=== PATIENT | female | born 2000 | race American Indian/Alaskan Native ===

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

== ENCOUNTER 2019-11-27 02:58 | Inpatient (IN) | payer MEDICAID ==
[2019-11-27] MEDS ORDERED: Oxytocin/Normal Saline 30 UNIT/500 ML BAG IV SCH (04:30)
[2019-11-27] MEDS ORDERED: Penicillin G Potassium 5 MILLUNITS in Sodium Chloride 0.9% 100 ML IV ONE (04:31)
[2019-11-27] MEDS: Lactated Ringers 1,000 ML IV SCH ×3 (06:16→11:24)
[2019-11-27] MEDS: Penicillin G Potassium 3 MILLUNITS in Sodium Chloride 0.9% 100 ML IV SCH ×2 (08:38→14:42)
--- NOTE | 2019-11-27 08:50 | OBOUT ---
DATE: 11/27/2019 DATE AND TIME OF NST: 11/27/2019, 3:40 to 4 a.m. REASON FOR NST: 1. Intrauterine at 40 and 1/7 weeks, confirmed with 20 and 4/7 week ultrasound. 2. Contractions. 3. Insufficient care/high-risk . 4. GBS unknown status. 5. History of fast labors and deliveries. 6. Difficulty getting to the hospital. 7. G2, P1-0-0-1. NST INTERPRETATION: During this time period, heart tone at baseline is approximately 125 and at least two 15 x 15 beats per minute accelerations making this strip reactive as well as reassuring. Tocometer reveals potential 7 to 8 contractions, minimally felt by patient. ASSESSMENT: 1. Nonstress test, reactive and reassuring. 2. Tocometer with contractions. PLAN: Blood pressure done, 135/76, heart rate 85, temperature 98. The patient was to present shortly after midnight, showed up around 3 o'clock in the morning. Due to her contractions being too often, Pitocin was unable to be started. Penicillin was started due to GBS unknown status, high-risk . Then, we will continue to follow clinically and closely. Consider artificial rupture of membranes if she continues to contract, and we will follow closely. Please see H and P for further details as well. This was done through [facility]. For this, records were called for, reviewed and supplemented by patient's history and review of systems was noted. [facility] /[id number]
[2019-11-27] MEDS ORDERED: NF PO SCH (09:00)
--- NOTE | 2019-11-27 10:06 | PN ---
DATE: 11/27/2019 SUBJECTIVE: The patient has been resting. Occasionally feels her contractions but she describes them as very mild. OBJECTIVE: heart tones currently in the 130s. Vaginal exam reveals her to be 3+ cm, 90% effaced, 0 to +1 station, vertex suspected, and bag of water felt. ASSESSMENT AND PLAN: Intrauterine at 40 and 1/7 weeks, confirmed with 20 and 4/7 weeks ultrasound, now with contractions and cervical foreign exchange clerk a 4 to 5-hour period with history of insufficient care, high risk , unknown GBS status, going to get her 2nd dose of penicillin currently with history of fast labors and deliveries and difficulty getting to the hospital, and G2, P1-0-0-1. We will proceed with getting that 2nd dose of penicillin in and consider artificial rupture of membranes after that, and the patient understands and agrees with the above treatment plan. [facility] /[id number]
[2019-11-27] MEDS ORDERED: EPINEPHrine 1 MG/1 ML Amp ONE ×2 (11:03→11:05)
[2019-11-27] MEDS ORDERED: fentaNYL 100 MCG/2 ML SDV ONE (11:03)
[2019-11-27] MEDS ORDERED: fentaNYL 100 MCG/2 ML SDV ITHECAL ONE (11:05)
--- NOTE | 2019-11-27 11:19 | PN ---
DATE: 11/27/2019 SUBJECTIVE: The patient notes no concerns. She is feeling contractions. OBJECTIVE: Vital Signs: Blood pressure 146/87. Prior to this systolic was 147. ASSESSMENT AND PLAN: Gestational hypertension versus transient hypertension versus preeclampsia. We will do PIH panel. Her white cell count was 7.1, hemoglobin 9.9, and platelets 289 earlier today. We will proceed with PIH panel and follow clinically and closely. No severe features suspected at this point in time as well. [facility] /[id number]
--- NOTE | 2019-11-27 11:38 | PCM.PRNOTE ---
- Free Text/Narrative Note: Requested to provide analgesia to full term patient in severe pain. Upon entering the room, patient is sitting on edge of bed complaining of severe abdominal/pelvic pain and discomfort. Procedure was discussed with patient including adverse outcomes and expectations. Pt consented to analgesia, SAB/IT. Pt placed into a proper sitting position. Landmarks for SAB/IT were identified and marked. Hands were washed and appropriate PPE was applied. Back was prepped with betadine x3. A sterile, transparent, fenestrated drape was applied. Excess betadine was removed. Using 3 mL of a 1% lidocaine solution, a skin wheel was placed at the L2/L3 interspace. A 24 ga (4 inch) Pencan spinal needle was inserted until positive for CSF. Negative for heme or paresthesias. Injected fentanyl 30 mcg, sufentanil 25 mcg, and 7.5 mg of a 0.75% bupivacaine solution with an epi wash. Pt was placed left lateral tilt position for approximately 20 minutes. There were zero complications or adverse outcomes. Will continue to monitor. Procedure Date & Time: 11/27/19 [id number]
--- NOTE | 2019-11-27 12:17 | PN ---
DATE: 11/27/2019 SUBJECTIVE: The patient's contractions are getting stronger. She is noticing them now. OBJECTIVE: heart tones in the 140s range. Tocometer reveals occasional contractions. Vaginal exam reveals to be 3+ cm, 85% to 90% effaced, 0 to -1 station, vertex suspected. Artificial rupture of membranes done after discussion with the patient with bulging bag of water noted, copious amounts of clear fluid returned. ASSESSMENT AND PLAN: Intrauterine 40 and 1/7 weeks with contractions and cervical change in labor, now status post artificial rupture of membranes with unknown GBS status, now status post 2 doses of penicillin with history of insufficient care, high risk during this , and history of fast labors and delivery with difficulty getting to the hospital. PLAN: We will continue to follow clinically and closely at this point in time. Plans were discussed with the patient. Pain management has been discussed with her earlier. [facility] /[id number]
[2019-11-27] MEDS ORDERED: Tranexamic Acid 1,000 MG in Sodium Chloride 0.9% 100 ML IV PRN (12:43)
[2019-11-27] MEDS ORDERED: Simethicone 80 MG Tab.Chew PO PRN (12:43)
[2019-11-27] MEDS ORDERED: Sodium Chloride 0.9% 10 ML Syringe FLUSH PRN (12:43)
[2019-11-27] MEDS ORDERED: Misoprostol 400 MCG (4 X 100 MCG TAB) RECTAL PRN (12:43)
[2019-11-27] MEDS ORDERED: Carboprost Tromethamine 250 MCG/1 ML Amp IM PRN (12:43)
[2019-11-27] MEDS ORDERED: Oxytocin 10 Units/1 ML SDV IM PRN (12:43)
[2019-11-27] MEDS ORDERED: Benzocaine/Menthol 20%-0.5% Spray 56 GM Canister TOP PRN (12:43)
[2019-11-27] MEDS ORDERED: Ondansetron 4 MG/2 ML SDV IVPUSH ONE (12:57)
[2019-11-27] MEDS: Ibuprofen 800 MG Tab PO PRN (17:05)
[2019-11-27] MEDS: Docusate Sodium 100 MG Cap PO PRN (17:05)
--- NOTE | 2019-11-27 18:43 | DEL ---
DATE: 11/27/2019 PREOPERATIVE DIAGNOSES: 1. Intrauterine at 40 and 1/7 weeks, confirmed with 20 and 4/7 weeks ultrasound. 2. Contractions with cervical change upon admission - labor. 3. Gestational hypertension, being worked up for preeclampsia. 4. Insufficient care/high-risk . 5. Unknown GBS status. She received at least 2 doses of penicillin. 6. History of fast labor and delivery. 7. Difficulty getting to the hospital. 8. G2, P1-0-0-1. 9. Anemia of with a hemoglobin of 9.9 upon admission. POSTOPERATIVE DIAGNOSES: 1. Intrauterine at 40 and 1/7 weeks, confirmed with 20 and 4/7 weeks ultrasound - delivered. 2. Contractions with cervical change upon admission - labor. 3. Gestational hypertension, being worked up for preeclampsia. 4. Insufficient care/high-risk . 5. Unknown GBS status. She received at least 2 doses of penicillin. 6. History of fast labor and delivery. 7. Difficulty getting to the hospital. 8. G2, P1-0-0-1. 9. Bilateral clear urethra abrasion, nonbleeding, non repaired after discussion with the patient. 10.Small perineal laceration, less than 1 cm, nonbleeding, non repaired after discussion with the patient. 11.Anemia of with a hemoglobin of 9.9 upon admission. PROCEDURES PERFORMED: Nonstress test followed by artificial rupture of membranes, spontaneous vaginal delivery. CUSTOMER ENERGY SPECIALIST: Emmanuel Hauser MS-4. ANESTHESIA/: The patient did receive an intrathecal in the first stage of labor. ESTIMATED BLOOD LOSS: 350 mL. FINDINGS: Male, score and weight pending. SUMMARY OF EVENTS: The patient is a 19-year-old, G2, P1-0-0-1, intrauterine at 40 and 1/7 weeks, confirmed with 20 and 4/7 weeks ultrasound, admitted on crnp of 11/27/2019 for induction of labor. Actually had contractions, was unable to start Pitocin. She developed cervical chart changer a 5-hour period and then started having elevated blood pressures. She did have artificial rupture of membranes and PIH panel other than the urine as her bag of water was broken. These did not reveal any signs or symptoms of severe preeclampsia. She also had anemia of , hemoglobin 9.9 upon admission. Please see other progress notes for further details. Pending is a urine protein- creatinine ratio at the time of dictation. Subsequently, the patient continued in labor, received an intrathecal in the first stage of labor around 7 cm, then was found to be complete and early decelerations were noted. I was called to the room, donned sterile gown and gloves, as well as Emmanuel Hauser, and the patient started pushing with contractions. vertex was then delivered in a JOSE presentation, followed by anterior posterior shoulder as well as rest of the infant without difficulty. Mouth and nares were suctioned. Cord was doubly clamped and cut. Infant was resuscitated on mother's abdomen. Approximately 10 mL of cord blood was obtained for labs. Placenta was then delivered with gentle cord traction with fundal massage within 5 to 10 minutes. Perineum, vagina, and perirectal areas were examined and noted to have bilateral periurethral abrasions, nonbleeding, non repaired after discussion with the patient, as well as a small perineal laceration, less than 1 cm, nonbleeding, non repaired after discussion with the patient. Mother and infant are currently stable at the time of dictation. [facility] /[id number]
[2019-11-27] MEDS: Acetaminophen 325 MG Tab PO PRN (20:29)
[2019-11-27] MEDS ORDERED: Zolpidem 5 MG Tab PO PRN (21:00)
[2019-11-28] MEDS ORDERED: Prenatal Multivitamin with Calcium/Folic Acid/Iron Tab PO SCH (09:00)
[2019-11-28] MEDS: Ferrous Sulfate 325 MG Tab PO SCH (09:05)
[2019-11-28] MEDS: Ibuprofen 800 MG Tab PO PRN ×2 (09:05→22:37)
[2019-11-28] MEDS: Docusate Sodium 100 MG Cap PO PRN ×2 (09:05→22:36)
--- NOTE | 2019-11-28 09:44 | PN ---
DATE: 11/28/2019 day #1, status post spontaneous vaginal delivery. SUBJECTIVE: The patient is tolerating p.o., was ambulating, urinating, passing flatus. Pain, she had some cramping in her belly. OBJECTIVE: Vital Signs: Temperature 98.2, heart rate 67, blood pressure 117/74, respiratory rate 16. Lungs: Clear to auscultation bilaterally. Heart: S1, S2. Regular rate and rhythm. Abdomen: Firm uterus at the umbilicus. Extremities: No peripheral edema. No calf pain. LABORATORY DATA: White cell count 8.3, hemoglobin 8.3 from predelivery hemoglobin 9.9, and platelets of 221. Yesterday's cath UA did reveal protein creatinine ratio of 4143.2, which would coincide with 4 g of protein. Therefore, she qualified for diagnosis of preeclampsia. ASSESSMENT AND PLAN: 1. day #1, status post spontaneous vaginal delivery. 2. Preeclampsia, resolving with blood pressures normalizing after delivery and we will continue to follow clinically and closely. She denies any headaches, visual changes, or upper abdominal pain today. Watch for any severe signs or symptoms as well. Did discuss with her preeclampsia and potential need for aspirin in the future with . The patient understands, agrees with above treatment plan. [facility] /[id number]
[2019-11-28] MEDS: Acetaminophen 325 MG Tab PO PRN ×2 (13:26→22:39)
--- NOTE | 2019-11-29 08:38 | DISCH ---
ADMITTING DIAGNOSES: 1. Intrauterine at 40 and 1/7 weeks, confirmed with 20 and 4/7 weeks ultrasound. 2. Contraction with cervical change - labor. 3. Insufficient care/high-risk . 4. Unknown GBS status, started on antibiotics. 5. Anemia of . Hemoglobin 9.9 upon admission. 6. History of fast labors and deliveries. 7. Difficulty getting to the hospital in terms of transportation. 8. G2, P1-0-0-1. DISCHARGE DIAGNOSES: 1. Intrauterine at 40 and 1/7 weeks, confirmed with 20 and 4/7 weeks ultrasound - delivered. 2. Contraction with cervical change - labor. 3. Insufficient care/high-risk . 4. Unknown GBS status, started on antibiotics. 5. Anemia of . Hemoglobin 9.9 upon admission. 6. History of fast labors and deliveries. 7. Difficulty getting to the hospital in terms of transportation. 8. G2, P1-0-0-1. 9. Preeclampsia without severe features. 10.Bilateral periurethral abrasions and small perineal laceration, less than 1 cm, nonbleeding, non repaired after discussion with the patient. PROCEDURES PERFORMED: NST, artificial rupture of membranes, spontaneous vaginal delivery per Dr. Hernandez on 11/27/2019. HISTORY OF PRESENT ILLNESS: Please see H and P. SUMMARY OF HOSPITAL COURSE: The patient was admitted on the above date with above diagnoses, and underwent the above procedures. She was initially set up for an induction, but she ended up proceeding into labor with contractions, cervical change. Underwent artificial rupture of membranes and then followed closely thereafter. She went on to deliver a male with score of 10 and 10, weighing 8 pounds 2 ounces (3680 g). Please see delivery note for further details. day #1, please see progress notes. Hemoglobin dropped down to 8.3, iron was started. day #2, date of discharge, the patient is tolerating p.o., is ambulating, urinating, passing flatus, requesting discharge. During her hospital stay, nearing the second stage of labor, she did have some elevated blood pressures. A urine protein-creatinine ratio was done as well as [facility] labs. No severe features were noted. However, her urine did reveal over suspected 4 g of protein with a 4143.3 protein-creatinine ratio and was diagnosed with preeclampsia at that time. PHYSICAL EXAMINATION: LAST SET OF VITALS: Temperature 99.2, heart rate 80, blood pressure 117/62, respiratory rate 18. Lungs: Clear to auscultation bilaterally. Heart: S1, S2. Regular rate and rhythm. Abdomen: Firm uterus. -1 below umbilicus. No peripheral edema. No calf pain. CONDITION ON DISCHARGE COMPARED TO CONDITION ON ADMISSION: Improved. DISCHARGE INSTRUCTIONS: 1. Diet as tolerated. 2. Activity: No lifting more than 20 pounds. No sit-ups or straining. Pelvic rest for the next 6 weeks with immediate return to fertility discussed with the patient. Reasons to return or go to the emergency room were discussed with the patient in detail including, but not limited to temperature greater than 100.4, foul- smelling discharge, red hot tender breasts, or increased vaginal bleeding. DISCHARGE MEDICATIONS: Tnad-isy-cllwsol ibuprofen for pain, iron sulfate 325 b.i.d. x6 weeks, the patient has this at home, and vitamins x6 weeks. FOLLOWUP: 6-weeks and she wishes to follow up with Lissa Ortega or myself and we will make a decision in the near future in regard to this. Did discuss with her the importance of followup and ramifications of not doing so, as well as reasons to go to the emergency room in regard to her infant as well. [facility] /[id number]
[2019-11-29 11:20] VITALS: BP 127/74; PULSE 92
[2019-11-29] MEDS: Ferrous Sulfate 325 MG Tab PO SCH (11:48)
== END 2019-11-29 13:00 | disposition home or self-care (01) | DRG 807 ==
LOC: DL.OB 02:58 → OBSVTOIN 12:34
PROVIDERS: ADMIT Family Medicine; ATTEND Family Medicine
PROC: 10E0XZZ Delivery of Products of Conception, External Approach (ICD-10-PCS; principal; 2019-11-27)
PROC: 10907ZC Drainage of Amniotic Fluid, Therapeutic from Products of Conception, Via Natural or Artificial Opening (ICD-10-PCS; 2019-11-27)
PROC: 3E0R3BZ Introduction of Anesthetic Agent into Spinal Canal, Percutaneous Approach (ICD-10-PCS; 2019-11-27)
PROC: 00HU33Z Insertion of Infusion Device into Spinal Canal, Percutaneous Approach (ICD-10-PCS; 2019-11-27)
DX: O14.04 Mild to moderate pre-eclampsia, complicating childbirth (principal); Z37.0 Single live birth; Z3A.40 40 weeks gestation of pregnancy; O99.02 Anemia complicating childbirth; Z20.828 Contact with and (suspected) exposure to other viral communicable diseases; D64.9 Anemia, unspecified; O76 Abnormality in fetal heart rate and rhythm complicating labor and delivery; O70.0 First degree perineal laceration during delivery
CPT/HCPCS: 01967; 36415; 59409; 81003; 82565; 82570; 83615; 84156; 84450; 84460; 84520; 84550; 85025; 85027; A9270-GY; J0171; J2405; J2540; J2590; J3010; J7120; U0002

== ENCOUNTER 2021-12-02 | Emergency (ER) | payer MEDICAID ==
[2021-12-25 12:29] LABS: CHLORIDE,CL 106 mmol/L (98-107); SODIUM,NA 143 mmol/L (136-145)
[2021-12-25 12:30] LABS: ANION GAP 17.7 mEq/L (7-13); ESTIMATED GFR 110 mL/min (>=60)
== END 2021-12-02 01:22 ==
LOC: DL.ED
DX: S00.31XA Abrasion of nose, initial encounter (principal); S00.81XA Abrasion of other part of head, initial encounter; S00.212A Abrasion of left eyelid and periocular area, initial encounter; F10.10 Alcohol abuse, uncomplicated; Y04.0XXA Assault by unarmed brawl or fight, initial encounter
CPT/HCPCS: 36415; 80053; 80307; 84703; 85025; 99283; 99284

== ENCOUNTER 2022-05-25 11:15 | Emergency (ER) | payer MEDICAID ==
[2022-05-25 11:24] VITALS: BP 129/76; PULSE 88
== END 2022-05-25 11:38 | disposition home or self-care (01) ==
LOC: DL.ED 11:15
DX: H66.003 Acute suppurative otitis media without spontaneous rupture of ear drum, bilateral (principal); J00 Acute nasopharyngitis [common cold]
CPT/HCPCS: 99282; 99283

== ENCOUNTER 2022-06-20 21:45 | Emergency (ER) | payer OTHER, MEDICAID ==
[2022-06-20 21:40] LABS: BASOPHILS PERCENT AUTO 0.3 % (0.0-1.0); EOSINOPHILS PERCENT AUTO 0.8 % (1.0-3.0); HEMATOCRIT 42.7 % (37.0-47.0); LYMPHOCYTES PERCENT AUTO 21.6 % (20.5-50.1); MEAN CORPUSCULAR HEMOGLOBIN 24.3 pg (27.0-34.0); MEAN CORPUSCULAR HGB CONC 32.8 g/dL (33.0-35.0); MEAN CORPUSCULAR VOLUME 74.1 fL (80-100); MONOCYTES PERCENT AUTO 9.8 % (2-8); NEUTROPHILS PERCENT AUTO 67.5 % (42.2-75.2); PLATELET COUNT,PLT 472 10^3/uL (150-450); RED BLOOD CELL COUNT 5.76 10^6/uL (4.2-5.4); WHITE BLOOD CELL COUNT,WBC 10.8 10^3/uL (5.0-10.0)
[~2022-06-20 21:45] MED LIST: Ondansetron 4 MG/2 ML SDV IVPUSH ONE; Sodium Chloride 0.9% 1,000 ML IV ONE
[2022-06-20 21:46] LABS: A/G RATIO 0.9; ALANINE AMINOTRANSFERASE,ALT 30 U/L (14-59); ALBUMIN 4.2 g/dL (3.4-5.0); ALKALINE PHOSPHATASE 117 U/L (46-116); ANION GAP 18.3 mEq/L (7-13); ASPARTATE AMNIOTRANSFERASE,AST 19 U/L (15-37); BILIRUBIN TOTAL 0.4 mg/dL (0.2-1.0); BLOOD UREA NITROGEN,BUN 14 mg/dL (7-18); BUN/CREATININE RATIO 15.1 (No establ ref range); CALCIUM 8.9 mg/dL (8.5-10.1); CARBON DIOXIDE,CO2 21 mmol/L (21-32); CHLORIDE,CL 105 mmol/L (98-107); CREATININE 0.93 mg/dL (0.55-1.02); ETHANOL BLOOD MEDICAL 235 mg/dL (0); GLUCOSE RANDOM 115 mg/dL (70-99); MAGNESIUM 2.4 mg/dL (1.8-2.4); POTASSIUM,K 3.3 mmol/L (3.5-5.1); PROTEIN TOTAL,TP 8.8 g/dL (6.4-8.2); SODIUM,NA 141 mmol/L (136-145)
[2022-06-20 21:48] LABS: ESTIMATED GFR 89 mL/min (>=60)
[2022-06-20 21:50] LABS: HCG QUALITATIVE,SERUM NEGATIVE (NEGATIVE)
[2022-06-20 22:08] VITALS: BP 118/85; PULSE 97
== END 2022-06-20 22:02 | disposition home or self-care (01) ==
LOC: DL.ED 21:45
DX: F10.920 Alcohol use, unspecified with intoxication, uncomplicated (principal); Y90.7 Blood alcohol level of 200-239 mg/100 ml; V89.2XXA Person injured in unspecified motor-vehicle accident, traffic, initial encounter; Y92.410 Unspecified street and highway as the place of occurrence of the external cause
CPT/HCPCS: 36415; 80053; 80307; 83735; 84703; 85025; 99283; 99284

== ENCOUNTER 2022-07-04 20:58 | Emergency (ER) | payer MEDICAID | END 2022-07-04 21:15 | disposition left against medical advice (07) | LOC: DL.ED 20:58 | DX: Z53.21 Procedure and treatment not carried out due to patient leaving prior to being seen by health care provider (principal) ==

== ENCOUNTER 2023-03-20 21:32 | Emergency (ER) | payer MEDICAID ==
[2023-03-20 21:56] VITALS: BP 126/81; PULSE 120
== END 2023-03-20 22:00 | disposition home or self-care (01) ==
LOC: DL.ED 21:32
DX: S09.92XA Unspecified injury of nose, initial encounter (principal); Z79.899 Other long term (current) drug therapy; Y04.2XXA Assault by strike against or bumped into by another person, initial encounter; Y92.481 Parking lot as the place of occurrence of the external cause
CPT/HCPCS: 70160; 99282; 99284

== ENCOUNTER 2023-05-28 20:45 | Emergency (ER) | payer OTHER, MEDICAID ==
[2023-05-28 21:53] VITALS: BP 137/67; PULSE 118
== END 2023-05-28 21:50 | disposition home or self-care (01) ==
LOC: DL.ED 20:45
DX: S81.851D Open bite, right lower leg, subsequent encounter (principal); W54.0XXD Bitten by dog, subsequent encounter
CPT/HCPCS: 99283

== ENCOUNTER 2023-06-09 09:29 | Emergency (ER) | payer MEDICAID ==
[2023-06-09 10:20] VITALS: BP 120/77; PULSE 77
== END 2023-06-09 10:08 | disposition home or self-care (01) ==
LOC: DL.ED 09:29
DX: Z48.00 Encounter for change or removal of nonsurgical wound dressing (principal); Z79.899 Other long term (current) drug therapy
CPT/HCPCS: 99282

== ENCOUNTER 2024-10-18 20:46 | Emergency (ER) | payer MEDICAID ==
[2024-10-18 20:57] VITALS: BP 139/89; PULSE 110
== END 2024-10-18 21:06 | disposition left against medical advice (07) ==
LOC: DL.ED 20:46
DX: S01.91XA Laceration without foreign body of unspecified part of head, initial encounter (principal); M25.571 Pain in right ankle and joints of right foot; Z79.899 Other long term (current) drug therapy; W01.198A Fall on same level from slipping, tripping and stumbling with subsequent striking against other object, initial encounter
CPT/HCPCS: 81025; 99283